=== PATIENT | female | born 2000 | race Caucasian/White ===

== ENCOUNTER 2024-07-08 16:16 | Outpatient (CLI) | payer OTHER, SELFPAY ==
[2024-07-08 21:51] LABS: Chlamydia DNA Amplified* NOT DETECTED (No Detected); GC DNA Amplified* NOT DETECTED (No Detected)
[2024-07-11 04:27] LABS: HPV Source Cervix; HPV, High Risk by TMA Not Detected
[2024-07-18 14:08] LABS: Pap Test Reviewed by Path Done
== END 2024-07-08 16:17 | disposition home or self-care (01) ==
PROVIDERS: Visit Provider Registered Nurse
DX: Z11.3 Encounter for screening for infections with a predominantly sexual mode of transmission (principal); Z12.4 Encounter for screening for malignant neoplasm of cervix; Z13.6 Encounter for screening for cardiovascular disorders; Z13.1 Encounter for screening for diabetes mellitus
CPT/HCPCS: 80061; 82947; 87491; 87591; 87624; 87625; 88141; 88142